=== PATIENT | male | born 1995 | race American Indian/Alaskan Native ===

== ENCOUNTER 2019-01-18 12:30 | Emergency (ER) | payer SELFPAY ==
[2019-01-18 12:38] VITALS: BP 125/81; PULSE 100; RESP 18; TEMP 99.4; O2SAT 100
--- NOTE | 2019-01-18 12:48 | C.PDOC ---
History Of Present Illness 23-year-old male presents to the ED for evaluation of cough and congestion for three days. Patient also reports subjective fever and sweats. Patient denies asthma or smoking. He denies dyspnea on exertion, chest pain, shortness of breath, or any other associated symptoms at this time. COUGH CONGESTION X 3 DAYS. SUBJ FEVER +SWEATS. DENIES ASTHMA, SMOKING. NO RODRIGUEZ/CP/SOB OTHER ASSOC SX EXAM NARD HEENT NEG LUNGS CTA B/L NO W/R/R +DRY COUGH NO RETRACTIONS REMAINDER NEG Time Seen by Provider: 01/18/19 12:41 Chief Complaint (Nursing): Cough, Cold, Congestion History Per: Patient History/Exam Limitations: no limitations Onset/Duration Of Symptoms: Days (3) Past Medical History Reviewed: Historical Data, Nursing Documentation, Vital Signs Vital Signs: Last Vital Signs Temp 99.4 F 01/18/19 12:37 Pulse 100 H 01/18/19 12:37 Resp 18 01/18/19 12:37 BP 125/81 01/18/19 12:37 Pulse Ox 100 01/18/19 12:37 - Medical History PMH: No Chronic Diseases Surgical History: No Surg Hx Family History: States: Unknown Family Hx - Social History Hx Alcohol Use: Yes Hx Substance Use: No - Immunization History Hx Tetanus Toxoid Vaccination: No Hx Influenza Vaccination: No Hx Pneumococcal Vaccination: No Review Of Systems ENT: Positive for: Nose Congestion Cardiovascular: Negative for: Chest Pain Respiratory: Positive for: Cough. Negative for: Shortness of Breath Physical Exam - Physical Exam Appears: Non-toxic, No Acute Distress Skin: Normal Color, Warm, Dry Head: Atraumatic, Normacephalic Eye(s): bilateral: Normal Inspection Ear(s): Bilateral: Normal Nose: Normal, No Discharge Oral Mucosa: Moist Throat: Normal, No Erythema, No Exudate Neck: Supple Chest: Symmetrical, No Deformity, No Tenderness Cardiovascular: Rhythm Regular, No Murmur Respiratory: Normal Breath Sounds, No Rales, No Rhonchi, No Wheezing, Other (CTA B/L NO W/R/R +DRY COUGH NO RETRACTIONS) Extremity: Normal ROM, Capillary Refill (less than 2 seconds ) Neurological/Psych: Normal Speech, Normal Cognition ED Course And Treatment O2 Sat by Pulse Oximetry: 100 (on RA) Pulse Ox Interpretation: Normal Disposition Counseled Patient/Family Regarding: Diagnosis, Need For Followup, Rx Given - Disposition Referrals: [facility] [Outside] [facility] [Outside] Disposition: HOME/ ROUTINE Disposition Time: 12:47 Condition: GOOD Prescriptions: Acetaminophen [Tylenol Extra Strength] 2 tab PO Q6 #30 tablet Benzonatate [Tessalon Perles] 200 mg PO TID PRN #15 sgl PRN Reason: Cough Ibuprofen [Motrin] 600 mg PO Q6 #30 tab Instructions: Acute Bronchitis, Adult (DC) Forms: [employer] (Azeri), Work Excuse - Clinical Impression Clinical Impression: Bronchitis - Scribe Statement The provider has reviewed the documentation as recorded by the Scribe (Myrtle Anand) Provider Attestation: All medical record entries made by the Scribe were at my direction and personally dictated by me. I have reviewed the chart and agree that the record accurately reflects my personal performance of the history, physical exam, medical decision making, and the department course for this patient. I have also personally directed, reviewed, and agree with the discharge instructions and d isposition.
== END 2019-01-18 13:02 | disposition home or self-care (01) ==
LOC: C.ER 12:30
DX: J40 Bronchitis, not specified as acute or chronic (principal)